=== PATIENT | female | born 1945 | race Caucasian/White ===

== ENCOUNTER 2023-06-18 13:28 | Inpatient (IN) | payer MEDICARE ==
[~2023-06-18] VITALS: Ht 157.5 cm; Wt 61.2 kg
[2023-06-18 14:01] LABS: *BILIRUBIN,URIN NEGATIVE (NEGATIVE); *CLARITY,URINE CLEAR (CLEAR); *COLOR,URINE LIGHT YELLOW (YELLOW); *KETONES,URINE NEGATIVE (NEGATIVE); *PROTEIN,URINE NEGATIVE (NEGATIVE); *UROBILINOGEN,URINE 0.2 E.U./dl (NORMAL); LEUKOCYTE ESTERASE ,URINE NEGATIVE (NEGATIVE); NITRITE, URINE NEGATIVE (NEGATIVE); PH,URINE 6.5 (5.0-8.0); UGLUCOSE NEGATIVE (NEGATIVE)
[2023-06-18 14:04] LABS: *BLOOD, URINE TRACE (NEGATIVE)
[2023-06-18 14:11] LABS: *AMPHETAMINE, URINE NEGATIVE (NEGATIVE); *BARBITURATE, URINE NEGATIVE (NEGATIVE); *BENZODIAZEPINE, URINE NEGATIVE (NEGATIVE); *CANNABINOID, URINE NEGATIVE (NEGATIVE); *COCCAINE, URINE NEGATIVE (NEGATIVE); *OPIATE, URINE NEGATIVE (NEGATIVE); *PHENCYCLIDINE SCREEN,URINE NEGATIVE (NEGATIVE)
[2023-06-18 14:11] LABS: BASOPHILS # (AUTO) 0.1 K/UL (0.0-0.2); BASOPHILS % (AUTO) 1.3 % (0.0-2.0); EOSINOPHILS # (AUTO) 0.2 K/uL (0.0-0.7); EOSINOPHILS % (AUTO) 3.5 % (0.0-7.0); HEMATOCRIT 40.2 % (31.2-41.9); HEMOGLOBIN 13.4 g/dL (10.9-14.3); LYMPHOCYTES # (AUTO) 1.6 K/uL (0.8-4.8); MEAN CORPUSCULAR HEMOGLOBIN 31.8 uug (24.7-32.8); MEAN CORPUSCULAR HGB CONC 33 g/dL (32.3-35.6); MEAN CORPUSCULAR VOLUME 95.4 fL (75.5-95.3); MONOCYTES # (AUTO) 0.8 K/uL (0.1-1.30); MONOCYTES % (AUTO) 13.8 % (0.0-11.0); NEUTROPHILS # (AUTO) 3.1 K/uL (1.8-8.9); NEUTROPHILS % (AUTO) 54.4 % (38.5-71.5); PLATELET COUNT (AUTO) 243 K/uL (179-408); RED BLOOD CELL COUNT(AUTO) 4.21 MIL/uL (3.63-4.92); RED CELL DISTRIBUTION WIDTH 12.5 % (12.3-17.7); WHITE BLOOD COUNT (AUTO) 5.7 K/uL (3.8-11.8)
[2023-06-18 14:19] LABS: BACTERIA,URINE NONE SEEN /HPF (NONE SEEN); RBC,URINE 0-3 /HPF (0-3); SQUAMOUS EPITHELIAL CELL,UR FEW /HPF (NONE SEEN); WBC,URINE 0-3 /HPF (0-3)
[2023-06-18 14:20] LABS: DIFFERENTIAL COMMENT 1
[2023-06-18 14:21] LABS: FENTANYL, URINE NEGATIVE (NEGATIVE)
[2023-06-18 14:35] LABS: ACETAMINOPHEN < 2.0 ug/mL (10-30); ALANINE AMINOTRANSFERASE 9 U/L (14-59); ALBUMIN 3.4 g/dL (3.4-5.0); ALKALINE PHOSPHATASE 69 U/L (50-136); ASPARTATE AMINOTRANSFERASE 5 U/L (15-37); BILIRUBIN,DIRECT 0.2 mg/dL (0.0-0.2); BILIRUBIN,TOTAL 0.5 mg/dL (0.2-1.0); CALCIUM 8.8 mg/dL (8.5-10.1); CARBON DIOXIDE 24 mmol/L (21-32); CHLORIDE 102 mmol/L (98-107); CREATININE 0.6 mg/dL (0.6-1.3); GLUCOSE 113 mg/dL (74-106); POTASSIUM 3.9 mmol/L (3.5-5.1); SODIUM SERUM 135 mmol/L (136-145); TOTAL PROTEIN, SERUM 6.6 g/dL (6.4-8.2); UREA NITROGEN, BLOOD 23 mg/dL (7-18)
[2023-06-18 14:44] LABS: ETHANOL < 3 MG/DL (0-10)
[2023-06-18] MEDS ORDERED: LORAZEPAM 0.5 MG TABLET PO PRN (16:15)
[2023-06-18] MEDS ORDERED: ACETAMINOPHEN 325 MG TABLET PO PRN (16:15)
[2023-06-18] MEDS ORDERED: BLOOD SUGAR DIAGNOSTIC 1 EACH STRIP VI ONE (16:15)
[2023-06-18 16:30] VITALS: BP 149/80; TEMP 98.1; O2SAT 98
[2023-06-18] MEDS ORDERED: MAG HYDROX/AL HYDROX/SIMETH 30 ML LIQUID UDC PO PRN (18:12)
[2023-06-18] MEDS ORDERED: DONE23TA3 PO (20:09)
[2023-06-18] MEDS ORDERED: QUET25TA PO (20:09)
[2023-06-18] MEDS ORDERED: ARIP2TAB3 PO (20:15)
[2023-06-18] MEDS ORDERED: OLANZAPINE 10 MG VIAL IM ONE (21:30)
[2023-06-18 21:41] VITALS: BP 132/76; TEMP 98.2; O2SAT 99
[2023-06-19] MEDS: TEMAZEPAM 7.5 MG CAPSULE PO PRN ×2 (00:27→21:39)
[2023-06-19] MEDS: OLANZAPINE 2.5 MG TABLET PO SCH ×2 (10:00→17:00)
[2023-06-19] MEDS ORDERED: LORAZEPAM 1 MG TABLET PO PRN (10:00)
[2023-06-19 15:30] VITALS: BP 127/67; TEMP 98; O2SAT 96
[2023-06-19] MEDS ORDERED: POLY15DR31 OP (17:46)
[2023-06-19] MEDS ORDERED: DORZ1DRO5 EACHEYE (17:51)
[2023-06-20 08:08] VITALS: BP 140/69; TEMP 98.3; O2SAT 98
[2023-06-20] MEDS: OLANZAPINE 2.5 MG TABLET PO SCH ×2 (09:00→18:06)
[2023-06-20 16:15] VITALS: BP 134/67; TEMP 98; O2SAT 98
[2023-06-20 20:00] VITALS: BP 130/83; TEMP 97.5; O2SAT 96
[2023-06-20] MEDS: TEMAZEPAM 7.5 MG CAPSULE PO PRN (20:25)
[2023-06-21 07:41] LABS: BASOPHILS % (AUTO) 0.2 % (0.0-2.0); EOSINOPHILS # (AUTO) 0.2 K/uL (0.0-0.7); HEMATOCRIT 39.5 % (31.2-41.9); HEMOGLOBIN 13.3 g/dL (10.9-14.3); LYMPHOCYTES # (AUTO) 2.4 K/uL (0.8-4.8); LYMPHOCYTES % (AUTO) 47.7 % (20.5-51.5); MEAN CORPUSCULAR HGB CONC 34 g/dL (32.3-35.6); MONOCYTES # (AUTO) 0.7 K/uL (0.1-1.30); MONOCYTES % (AUTO) 13.1 % (0.0-11.0); NEUTROPHILS # (AUTO) 1.8 K/uL (1.8-8.9); PLATELET COUNT (AUTO) 233 K/uL (179-408); RED BLOOD CELL COUNT(AUTO) 4.15 MIL/uL (3.63-4.92); RED CELL DISTRIBUTION WIDTH 12.3 % (12.3-17.7); WHITE BLOOD COUNT (AUTO) 5.1 K/uL (3.8-11.8)
[2023-06-21 07:43] VITALS: BP 148/62; TEMP 98.3; O2SAT 98
[2023-06-21 07:57] LABS: DIFFERENTIAL COMMENT 1
[2023-06-21 08:13] LABS: ALANINE AMINOTRANSFERASE 17 U/L (14-59); ALBUMIN 3.6 g/dL (3.4-5.0); ALKALINE PHOSPHATASE 58 U/L (50-136); ASPARTATE AMINOTRANSFERASE 17 U/L (15-37); BILIRUBIN,TOTAL 1.1 mg/dL (0.2-1.0); CALCIUM 8.3 mg/dL (8.5-10.1); CARBON DIOXIDE 23 mmol/L (21-32); CHLORIDE 103 mmol/L (98-107); CREATININE 0.5 mg/dL (0.6-1.3); GLUCOSE 110 mg/dL (74-106); POTASSIUM 3.8 mmol/L (3.5-5.1); SODIUM SERUM 136 mmol/L (136-145); TOTAL PROTEIN, SERUM 6.7 g/dL (6.4-8.2); UREA NITROGEN, BLOOD 13 mg/dL (7-18)
[2023-06-21] MEDS: OLANZAPINE 2.5 MG TABLET PO SCH ×3 (08:15→16:35)
[2023-06-21] MEDS ORDERED: BIMA2.5D5 EACHEYE (10:39)
[2023-06-21] MEDS ORDERED: OLANZAPINE 2.5 MG TABLET PO PRN (11:15)
[2023-06-21] MEDS: POLYVINYL ALCOHOL OPHT DROPS 15 ML BOTTLE EACHEYE SCH ×2 (15:42→20:14)
[2023-06-21 16:04] VITALS: BP 144/74; TEMP 98.1; O2SAT 98
[2023-06-21 20:00] VITALS: BP 143/76; TEMP 97.9; O2SAT 96
[2023-06-21] MEDS: DORZOLAMIDE/TIMOLOL OPHT DROP 10 ML BOTTLE EACHEYE SCH (20:15)
[2023-06-21] MEDS: LATANOPROST OPHT DROP 2.5 ML BOTTLE EACHEYE SCH (20:16)
[2023-06-21] MEDS ORDERED: BIMATOPROST 0.03% EACHEYE SCH (21:00)
[2023-06-21] MEDS ORDERED: OLANZAPINE 10 MG VIAL IM STA (21:31)
[2023-06-22 07:30] VITALS: BP 127/73; TEMP 98.4; O2SAT 100
[2023-06-22] MEDS: OLANZAPINE 2.5 MG TABLET PO SCH (09:43)
[2023-06-22] MEDS: POLYVINYL ALCOHOL OPHT DROPS 15 ML BOTTLE EACHEYE SCH ×4 (09:44→21:44)
[2023-06-22] MEDS: DORZOLAMIDE/TIMOLOL OPHT DROP 10 ML BOTTLE EACHEYE SCH ×2 (09:44→20:51)
[2023-06-22 16:00] VITALS: BP 155/69; TEMP 98.6; O2SAT 98
[2023-06-22 20:00] VITALS: BP 154/71; TEMP 98; O2SAT 97
[2023-06-22] MEDS: OLANZAPINE 5 MG TABLET PO SCH (20:31)
[2023-06-22] MEDS: LATANOPROST OPHT DROP 2.5 ML BOTTLE EACHEYE SCH (20:33)
[2023-06-22] MEDS: TEMAZEPAM 7.5 MG CAPSULE PO PRN (21:49)
[2023-06-23 07:30] VITALS: BP 132/76; TEMP 97.3; O2SAT 98
[2023-06-23 08:05] VITALS: BP 132/76; TEMP 97.3; O2SAT 97
[2023-06-23] MEDS: OLANZAPINE 2.5 MG TABLET PO SCH (09:24)
[2023-06-23] MEDS: GLUCERNA SHAKE 237 ML CAN PO SCH (09:24)
[2023-06-23] MEDS: POLYVINYL ALCOHOL OPHT DROPS 15 ML BOTTLE EACHEYE SCH ×4 (09:25→20:27)
[2023-06-23] MEDS: DORZOLAMIDE/TIMOLOL OPHT DROP 10 ML BOTTLE EACHEYE SCH ×2 (09:25→20:40)
[2023-06-23 16:00] VITALS: BP 138/68; TEMP 98; O2SAT 99
[2023-06-23 20:00] VITALS: BP 144/82; TEMP 98.6; O2SAT 97
[2023-06-23] MEDS: LATANOPROST OPHT DROP 2.5 ML BOTTLE EACHEYE SCH (20:10)
[2023-06-23] MEDS: OLANZAPINE 5 MG TABLET PO SCH (20:39)
[2023-06-23] MEDS ORDERED: OLANZAPINE 10 MG VIAL IM ONE (22:00)
[2023-06-24 07:30] VITALS: BP 133/59; TEMP 97.8; O2SAT 100
[2023-06-24] MEDS: POLYVINYL ALCOHOL OPHT DROPS 15 ML BOTTLE EACHEYE SCH ×4 (08:21→21:48)
[2023-06-24] MEDS: OLANZAPINE 2.5 MG TABLET PO SCH (08:21)
[2023-06-24] MEDS: DORZOLAMIDE/TIMOLOL OPHT DROP 10 ML BOTTLE EACHEYE SCH ×2 (08:22→21:45)
[2023-06-24] MEDS: GLUCERNA SHAKE 237 ML CAN PO SCH (09:00)
[2023-06-24 10:57] LABS: BASOPHILS % (AUTO) 0.6 % (0.0-2.0); EOSINOPHILS # (AUTO) 0.2 K/uL (0.0-0.7); EOSINOPHILS % (AUTO) 4.6 % (0.0-7.0); HEMOGLOBIN 13.7 g/dL (10.9-14.3); LYMPHOCYTES % (AUTO) 24.6 % (20.5-51.5); MEAN CORPUSCULAR HEMOGLOBIN 31.8 uug (24.7-32.8); MEAN CORPUSCULAR HGB CONC 33 g/dL (32.3-35.6); MEAN CORPUSCULAR VOLUME 95.1 fL (75.5-95.3); MONOCYTES # (AUTO) 0.6 K/uL (0.1-1.30); MONOCYTES % (AUTO) 15.2 % (0.0-11.0); NEUTROPHILS # (AUTO) 2.3 K/uL (1.8-8.9); PLATELET COUNT (AUTO) 227 K/uL (179-408); RED BLOOD CELL COUNT(AUTO) 4.31 MIL/uL (3.63-4.92); RED CELL DISTRIBUTION WIDTH 12.2 % (12.3-17.7); WHITE BLOOD COUNT (AUTO) 4.2 K/uL (3.8-11.8)
[2023-06-24] MEDS: DIVALPROEX 125 MG TABLET.DR PO SCH (13:18)
[2023-06-24] MEDS: OLANZAPINE ZYDIS 5 MG TAB.RAPDIS PO SCH ×2 (13:18→21:40)
[2023-06-24 16:00] VITALS: BP 155/80; TEMP 98.7; O2SAT 98
[2023-06-24 18:05] LABS: NEUTROPHILS % (MANUAL) 50 % (42-75)
[2023-06-24 18:06] LABS: BAND % (MANUAL) 3 % (0-10); EOSINOPHILS % (MANUAL) 4 % (0-8); LYMPHOCYTES % (MANUAL) 28 % (20-40); MONOCYTES % (MANUAL) 14 % (2-10); PLATELET ESTIMATE ADEQUATE
[2023-06-24 21:19] VITALS: BP 139/80; TEMP 98; O2SAT 100
[2023-06-24] MEDS: LATANOPROST OPHT DROP 2.5 ML BOTTLE EACHEYE SCH (21:43)
[2023-06-25 07:47] VITALS: BP 117/65; TEMP 98.2; O2SAT 96
[2023-06-25] MEDS: DIVALPROEX 125 MG TABLET.DR PO SCH (08:49)
[2023-06-25] MEDS: DORZOLAMIDE/TIMOLOL OPHT DROP 10 ML BOTTLE EACHEYE SCH ×2 (08:49→21:28)
[2023-06-25] MEDS: POLYVINYL ALCOHOL OPHT DROPS 15 ML BOTTLE EACHEYE SCH ×4 (08:49→21:27)
[2023-06-25] MEDS: OLANZAPINE ZYDIS 5 MG TAB.RAPDIS PO SCH ×3 (08:50→21:28)
[2023-06-25] MEDS: GLUCERNA SHAKE 237 ML CAN PO SCH (08:51)
[2023-06-25] MEDS: DIVALPROEX 250 MG TABLET.DR PO SCH (16:13)
[2023-06-25 16:14] VITALS: BP 120/64; TEMP 98.1; O2SAT 95
[2023-06-25 19:56] VITALS: BP 137/65; TEMP 98; O2SAT 99
[2023-06-25] MEDS: LATANOPROST OPHT DROP 2.5 ML BOTTLE EACHEYE SCH (21:27)
[2023-06-26 07:55] VITALS: BP 139/67; TEMP 99.5; O2SAT 98
[2023-06-26] MEDS: OLANZAPINE ZYDIS 5 MG TAB.RAPDIS PO SCH ×3 (09:07→21:07)
[2023-06-26] MEDS: DIVALPROEX 250 MG TABLET.DR PO SCH ×2 (09:08→16:39)
[2023-06-26] MEDS: POLYVINYL ALCOHOL OPHT DROPS 15 ML BOTTLE EACHEYE SCH ×4 (09:08→21:07)
[2023-06-26] MEDS: DORZOLAMIDE/TIMOLOL OPHT DROP 10 ML BOTTLE EACHEYE SCH ×2 (09:08→21:07)
[2023-06-26] MEDS: GLUCERNA SHAKE 237 ML CAN PO SCH (09:09)
[2023-06-26 16:22] VITALS: BP 130/64; TEMP 99.3; O2SAT 98
[2023-06-26] MEDS: GUAIFENESIN/DEXTROMETHORPHAN 5 ML UDC PO PRN ×2 (16:39→23:17)
[2023-06-26 20:00] VITALS: BP 146/73; TEMP 98.8; O2SAT 97
[2023-06-26] MEDS: LATANOPROST OPHT DROP 2.5 ML BOTTLE EACHEYE SCH (21:07)
[2023-06-27 08:16] VITALS: BP 129/69; TEMP 99.1; O2SAT 98
[2023-06-27] MEDS: OLANZAPINE ZYDIS 5 MG TAB.RAPDIS PO SCH ×3 (09:33→21:15)
[2023-06-27] MEDS: DIVALPROEX 250 MG TABLET.DR PO SCH ×2 (09:33→17:10)
[2023-06-27] MEDS: DORZOLAMIDE/TIMOLOL OPHT DROP 10 ML BOTTLE EACHEYE SCH ×2 (09:34→21:14)
[2023-06-27] MEDS: GLUCERNA SHAKE 237 ML CAN PO SCH (09:35)
[2023-06-27] MEDS: POLYVINYL ALCOHOL OPHT DROPS 15 ML BOTTLE EACHEYE SCH ×4 (09:35→21:14)
[2023-06-27] MEDS: GUAIFENESIN/DEXTROMETHORPHAN 5 ML UDC PO PRN (13:05)
[2023-06-27 16:24] VITALS: BP 148/86; TEMP 98.3; O2SAT 98
[2023-06-27 19:33] VITALS: BP 112/67; TEMP 98.1; O2SAT 98
[2023-06-27] MEDS: LATANOPROST OPHT DROP 2.5 ML BOTTLE EACHEYE SCH (21:15)
[2023-06-27] MEDS: TEMAZEPAM 7.5 MG CAPSULE PO PRN (21:15)
[2023-06-28 08:00] VITALS: BP 110/55; TEMP 98.2; O2SAT 99
[2023-06-28] MEDS: POLYVINYL ALCOHOL OPHT DROPS 15 ML BOTTLE EACHEYE SCH ×4 (09:00→21:10)
[2023-06-28] MEDS: DORZOLAMIDE/TIMOLOL OPHT DROP 10 ML BOTTLE EACHEYE SCH ×2 (09:47→21:10)
[2023-06-28] MEDS: OLANZAPINE ZYDIS 5 MG TAB.RAPDIS PO SCH ×3 (09:47→21:10)
[2023-06-28] MEDS: DIVALPROEX 250 MG TABLET.DR PO SCH (09:47)
[2023-06-28] MEDS: GLUCERNA SHAKE 237 ML CAN PO SCH (09:48)
[2023-06-28] MEDS: DIVALPROEX 125 MG TABLET.DR PO SCH (13:00)
[2023-06-28 16:00] VITALS: BP 115/50; TEMP 98.3; O2SAT 98
[2023-06-28 20:00] VITALS: BP 138/86; TEMP 98.1; O2SAT 96
[2023-06-28] MEDS: LATANOPROST OPHT DROP 2.5 ML BOTTLE EACHEYE SCH (21:11)
[2023-06-28] MEDS: TEMAZEPAM 7.5 MG CAPSULE PO PRN (22:30)
[2023-06-29 08:57] VITALS: BP 133/65; TEMP 98.2; O2SAT 98
[2023-06-29] MEDS: DORZOLAMIDE/TIMOLOL OPHT DROP 10 ML BOTTLE EACHEYE SCH ×2 (08:57→21:04)
[2023-06-29] MEDS: DIVALPROEX 125 MG TABLET.DR PO SCH ×2 (08:57→12:41)
[2023-06-29] MEDS: POLYVINYL ALCOHOL OPHT DROPS 15 ML BOTTLE EACHEYE SCH ×4 (08:57→21:00)
[2023-06-29] MEDS: GLUCERNA SHAKE 237 ML CAN PO SCH (08:57)
[2023-06-29] MEDS: OLANZAPINE ZYDIS 5 MG TAB.RAPDIS PO SCH ×3 (08:57→21:03)
[2023-06-29] MEDS: GUAIFENESIN/DEXTROMETHORPHAN 5 ML UDC PO PRN (14:55)
[2023-06-29 15:41] VITALS: BP 129/61; TEMP 98.2; O2SAT 98
[2023-06-29 20:00] VITALS: BP 130/87; TEMP 98.1; O2SAT 97
[2023-06-29] MEDS: LATANOPROST OPHT DROP 2.5 ML BOTTLE EACHEYE SCH (21:00)
[2023-06-30 08:02] VITALS: BP 128/89; TEMP 98; O2SAT 100
[2023-06-30] MEDS: GLUCERNA SHAKE 237 ML CAN PO SCH (09:00)
[2023-06-30] MEDS: DIVALPROEX 125 MG TABLET.DR PO SCH ×2 (09:37→16:55)
[2023-06-30] MEDS: POLYVINYL ALCOHOL OPHT DROPS 15 ML BOTTLE EACHEYE SCH ×4 (09:37→20:26)
[2023-06-30] MEDS: DORZOLAMIDE/TIMOLOL OPHT DROP 10 ML BOTTLE EACHEYE SCH ×2 (09:37→20:26)
[2023-06-30] MEDS: OLANZAPINE ZYDIS 5 MG TAB.RAPDIS PO SCH ×2 (09:37→13:29)
[2023-06-30 09:53] LABS: BASOPHILS % (AUTO) 0.3 % (0.0-2.0); EOSINOPHILS # (AUTO) 0.1 K/uL (0.0-0.7); EOSINOPHILS % (AUTO) 2.8 % (0.0-7.0); HEMATOCRIT 38.9 % (31.2-41.9); HEMOGLOBIN 13.1 g/dL (10.9-14.3); LYMPHOCYTES # (AUTO) 1.5 K/uL (0.8-4.8); LYMPHOCYTES % (AUTO) 28.6 % (20.5-51.5); MEAN CORPUSCULAR HEMOGLOBIN 31.8 uug (24.7-32.8); MEAN CORPUSCULAR HGB CONC 34 g/dL (32.3-35.6); MEAN CORPUSCULAR VOLUME 94.1 fL (75.5-95.3); MONOCYTES # (AUTO) 0.7 K/uL (0.1-1.30); MONOCYTES % (AUTO) 12.3 % (0.0-11.0); PLATELET COUNT (AUTO) 202 K/uL (179-408); RED BLOOD CELL COUNT(AUTO) 4.13 MIL/uL (3.63-4.92); RED CELL DISTRIBUTION WIDTH 12.3 % (12.3-17.7); WHITE BLOOD COUNT (AUTO) 5.3 K/uL (3.8-11.8)
[2023-06-30 10:11] LABS: DIFFERENTIAL COMMENT 1
[2023-06-30 10:15] LABS: ALANINE AMINOTRANSFERASE 19 U/L (14-59); ALBUMIN 3.5 g/dL (3.4-5.0); ALKALINE PHOSPHATASE 65 U/L (50-136); ASPARTATE AMINOTRANSFERASE 22 U/L (15-37); BILIRUBIN,TOTAL 0.6 mg/dL (0.2-1.0); CALCIUM 8.7 mg/dL (8.5-10.1); CARBON DIOXIDE 28 mmol/L (21-32); CHLORIDE 99 mmol/L (98-107); CREATININE 0.6 mg/dL (0.6-1.3); GLUCOSE 141 mg/dL (74-106); POTASSIUM 3.9 mmol/L (3.5-5.1); SODIUM SERUM 134 mmol/L (136-145); TOTAL PROTEIN, SERUM 6.9 g/dL (6.4-8.2); UREA NITROGEN, BLOOD 15 mg/dL (7-18)
[2023-06-30 15:33] VITALS: BP 137/70; TEMP 98; O2SAT 99
[2023-06-30 20:16] VITALS: BP 135/73; TEMP 98.1; O2SAT 97
[2023-06-30] MEDS: LATANOPROST OPHT DROP 2.5 ML BOTTLE EACHEYE SCH (20:26)
[2023-06-30] MEDS ORDERED: OLANZAPINE ZYDIS 5 MG TAB.RAPDIS PO SCH (21:00)
[2023-07-01 08:07] VITALS: BP 118/70; TEMP 98; O2SAT 99
[2023-07-01] MEDS: DIVALPROEX 125 MG TABLET.DR PO SCH ×2 (08:57→18:05)
[2023-07-01] MEDS: POLYVINYL ALCOHOL OPHT DROPS 15 ML BOTTLE EACHEYE SCH ×4 (08:58→21:21)
[2023-07-01] MEDS: DORZOLAMIDE/TIMOLOL OPHT DROP 10 ML BOTTLE EACHEYE SCH ×2 (08:58→21:20)
[2023-07-01] MEDS ORDERED: OLANZAPINE ZYDIS 5 MG TAB.RAPDIS PO SCH (09:00)
[2023-07-01 14:32] LABS: THYROID STIMULATING HORMONE 2.548 mIU/mL (0.358-3.740)
[2023-07-01 15:28] VITALS: BP 132/66; TEMP 98; O2SAT 98
[2023-07-01] MEDS: GUAIFENESIN/DEXTROMETHORPHAN 5 ML UDC PO PRN (18:18)
[2023-07-01 20:12] VITALS: BP 130/66; TEMP 98.1; O2SAT 99
[2023-07-01] MEDS: OLANZAPINE ZYDIS 5 MG TAB.RAPDIS PO SCH (21:20)
[2023-07-01] MEDS: LATANOPROST OPHT DROP 2.5 ML BOTTLE EACHEYE SCH (21:21)
[2023-07-02 08:36] VITALS: BP 110/71; TEMP 98; O2SAT 98
[2023-07-02] MEDS ORDERED: OLANZAPINE ZYDIS 5 MG TAB.RAPDIS PO SCH (09:00)
[2023-07-02 09:12] LABS: BASOPHILS % (AUTO) 0.3 % (0.0-2.0); EOSINOPHILS % (AUTO) 0.6 % (0.0-7.0); HEMATOCRIT 35.5 % (31.2-41.9); HEMOGLOBIN 12.2 g/dL (10.9-14.3); LYMPHOCYTES # (AUTO) 1.3 K/uL (0.8-4.8); LYMPHOCYTES % (AUTO) 18.7 % (20.5-51.5); MEAN CORPUSCULAR HGB CONC 34 g/dL (32.3-35.6); MEAN CORPUSCULAR VOLUME 93.2 fL (75.5-95.3); MONOCYTES # (AUTO) 1.1 K/uL (0.1-1.30); MONOCYTES % (AUTO) 15.6 % (0.0-11.0); NEUTROPHILS # (AUTO) 4.4 K/uL (1.8-8.9); NEUTROPHILS % (AUTO) 64.8 % (38.5-71.5); PLATELET COUNT (AUTO) 199 K/uL (179-408); RED BLOOD CELL COUNT(AUTO) 3.81 MIL/uL (3.63-4.92); RED CELL DISTRIBUTION WIDTH 12.2 % (12.3-17.7); WHITE BLOOD COUNT (AUTO) 6.8 K/uL (3.8-11.8)
[2023-07-02 09:14] LABS: DIFFERENTIAL COMMENT 1
[2023-07-02] MEDS: DIVALPROEX 125 MG TABLET.DR PO SCH ×2 (09:21→16:58)
[2023-07-02] MEDS: DORZOLAMIDE/TIMOLOL OPHT DROP 10 ML BOTTLE EACHEYE SCH ×2 (09:21→20:24)
[2023-07-02 09:22] LABS: ALANINE AMINOTRANSFERASE 14 U/L (14-59); ALKALINE PHOSPHATASE 56 U/L (50-136); ASPARTATE AMINOTRANSFERASE 10 U/L (15-37); BILIRUBIN,TOTAL 0.9 mg/dL (0.2-1.0); CALCIUM 8.1 mg/dL (8.5-10.1); CARBON DIOXIDE 22 mmol/L (21-32); CHLORIDE 101 mmol/L (98-107); CREATININE 0.4 mg/dL (0.6-1.3); GLUCOSE 106 mg/dL (74-106); POTASSIUM 3.4 mmol/L (3.5-5.1); SODIUM SERUM 133 mmol/L (136-145); TOTAL PROTEIN, SERUM 6.2 g/dL (6.4-8.2); UREA NITROGEN, BLOOD 13 mg/dL (7-18); VALPROIC ACID 8 ug/mL (50-100)
[2023-07-02] MEDS: POLYVINYL ALCOHOL OPHT DROPS 15 ML BOTTLE EACHEYE SCH ×4 (09:25→20:25)
[2023-07-02 15:45] VITALS: BP 119/52; TEMP 99.8; O2SAT 97
[2023-07-02 16:30] LABS: LYMPHOCYTES % (MANUAL) 16 % (20-40); MONOCYTES % (MANUAL) 8 % (2-10); NEUTROPHILS % (MANUAL) 76 % (42-75); PLATELET ESTIMATE ADEQUATE
[2023-07-02] MEDS: OLANZAPINE ZYDIS 5 MG TAB.RAPDIS PO SCH (20:18)
[2023-07-02 20:19] VITALS: BP 112/60; TEMP 98.6; O2SAT 97
[2023-07-02] MEDS: LATANOPROST OPHT DROP 2.5 ML BOTTLE EACHEYE SCH (20:24)
== END 2023-07-02 20:55 | DRG 885 ==
LOC: ER 13:28 → GPS 15:44
PROVIDERS: ADMIT Psychiatry & Neurology Psychosomatic Medicine; ATTEND Nurse Practitioner Acute Care
DX: F39 Unspecified mood [affective] disorder (principal); F02.82 Dementia in other diseases classified elsewhere, unspecified severity, with psychotic disturbance; F02.818 Dementia in other diseases classified elsewhere, unspecified severity, with other behavioral disturbance; G30.9 Alzheimer's disease, unspecified; Z88.3 Allergy status to other anti-infective agents; Z88.2 Allergy status to sulfonamides; Z88.5 Allergy status to narcotic agent; Z91.148 Patient's other noncompliance with medication regimen for other reason; Z82.49 Family history of ischemic heart disease and other diseases of the circulatory system; Z91.410 Personal history of adult physical and sexual abuse; H40.9 Unspecified glaucoma
CPT/HCPCS: 36415; 70030-TC; 70450; 71045; 80164; 82747; 83921; 84443; 85014; 85025; 93005; G0480; J2358; J3490